=== PATIENT | male | born 1980 | race Two or more races ===

== ENCOUNTER 2025-07-18 12:56 | Emergency (ER) | payer OTHER, SELFPAY ==
[2025-07-18 13:19] VITALS: BP 150/95; PULSE 94; RESP 18; TEMP 36.5; O2SAT 97
--- NOTE | 2025-07-18 13:40 | ED.GENADULT ---
HPI - General Adult General Chief complaint: Back Injury/Pain Stated complaint: Back injury Time Seen by Provider: 07/18/25 12:57 History of Present Illness HPI narrative: Patient strained his back couple days ago work and has CT head continued pain. He tried to work yesterday but was sent home as he could not really lift anything due to pain in his back. He denies radicular symptoms. Denies bowel or bladder symptoms, denies perineal numbness. He has had no recent illness fever no history of back problems. He denies urinary or bowel symptoms Related Data Previous Rx's ?Medication ?Instructions ?Recorded ketorolac 10 mg tablet 10 mg PO Q8H PRN pain 3 days #10 07/18/25 tabs prednisone 20 mg tablet 20 mg PO BID #10 tabs 07/18/25 Allergies Allergy/AdvReac Type Severity Reaction Status Date / Time No Known Drug Allergies Allergy Verified 07/18/25 13:27 Review of Systems Status of ROS: Reports: 6 or more systems reviewed and unremarkable except as noted in History and below PFSH PFSH Social History Smoking Status: Never smoker How often do you have a drink containing alcohol: never AUDIT-C Alcohol total score: 0 Non-prescribed substance use: denies use Exam Narrative: Exam Narrative: Objective: Patient's blood pressure slightly elevated Alert orient x3 in smiling interactive Mild tenderness along his lumbar sacral spine midline in the lower back negative straight leg raise bilaterally Normal and symmetric strength and reflex in lower extremities Const: Vital Signs, click to edit/add: Vital Signs - 24 hr 07/18/25 13:19 Temperature 97.7 F Pulse Rate [Pulse Oximeter] 94 Respiratory Rate 18 Blood Pressure [Ri ght Upper Arm] 150/95 H Pulse Oximetry 97 Oxygen Delivery Me thod Room Air Course Vital Signs Vital signs: Initial Vital Signs Temperature 97.7 F 07/18/25 13:19 Temperature Source Temporal Artery Scan 07/18/25 13:19 Pulse Rate 94 07/18/25 13:19 Pulse Rhythm Regular 07/18/25 13:19 Respiratory Rate 18 07/18/25 13:19 Blood Pressure 150/95 H 07/18/25 13:19 Blood Pressure Mean 113 H 07/18/25 13:19 Blood Pressure Position Sitting 07/18/25 13:19 Pulse Oximetry 97 07/18/25 13:19 Oxygen Delivery Method Room Air 07/18/25 13:19 Vital Signs Temperature 97.7 F 07/18/25 13:19 Pulse Rate 94 07/18/25 13:19 Respiratory Rate 18 07/18/25 13:19 Blood Pressure 150/95 H 07/18/25 13:19 Pulse Oximetry 97 07/18/25 13:19 Oxygen Delivery Method Room Air 07/18/25 13:19 Temperature 97.7 F 07/18/25 13:19 Pulse Rate 94 07/18/25 13:19 Respiratory Rate 18 07/18/25 13:19 Blood Pressure 150/95 H 07/18/25 13:19 Pulse Oximetry 97 07/18/25 13:19 Oxygen Delivery Method Room Air 07/18/25 13:19 Medications Administered Medications: Discontinued Medications Generic Name Dose Route Start Last Admin Trade Name Andresq PRN Reason Stop Dose Admin Ketorolac Tromethamine 10 mg 07/18/25 13:36 07/18/25 13:47 Ketorolac 10 Mg Tablet PO 07/18/25 13:37 10 mg ONCE ONE Administration Prednisone 50 mg 07/18/25 13:36 07/18/25 13:46 Prednisone 10 Mg Tablet PO 07/18/25 13:37 50 mg ONCE ONE Administration Medical Decision Making [facility] Narrative Medical decision making narrative: 44-year-old male through an language interpreter describes a lumbar myofascial strain. At this point I think given his limited range of motion I think it be reasonable to have him off work until he is re-evaluated on Wednesday or Wednesday of next week. He does not work on the weekend. 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 Would have him get a dose of prednisone and 50 mg now and then start 20 b.i.d. for 5 days tomorrow would recommend also he is off work until Wednesday as mention and Toradol 10 mg t.i.d. p.r.n. for pain or discomfort. This was relayed to interpret he was comfortable this plan. We will attempt to set him up for appointment at our primary care clinic. Discharge Plan Discharge Clinical Impression: Strain of lumbar region Patient Disposition: Home, Self-Care Condition: Stable Additional Instructions: Off work until follow-up with primary care in the next few days, will set up an appointment for you. Toradol and prednisone as prescribed. Light activity, walk regularly, ice to her back 10-20 minutes 3 to 4 times a day if he can until you see primary care. Follow up appointment is scheduled at the [facility] on 07/24 with a 9am appointment time. Please arrive at 8:45am to complete paperwork. If you have any questions or need to reschedule, please call [phone]. [address] [address] Activity Level: Light activity Discharge Diet: Regular Prescriptions: New prednisone 20 mg tablet 20 mg PO BID Qty: 10 0RF ketorolac 10 mg tablet 10 mg PO Q8H PRN (Reason: pain) 3 Days Qty: 10 0RF Stand Alone Forms: MyHealth Info Instructions
[2025-07-18] MEDS: KETOROLAC 10 MG TABLET PO (13:47)
== END 2025-07-18 14:33 | disposition home or self-care (01) ==
LOC: ED 13:48
PROVIDERS: Emergency Provider Family Medicine
DX: S39.012A Strain of muscle, fascia and tendon of lower back, initial encounter (principal)
CPT/HCPCS: 99283; 99284; A9270; J7512